=== PATIENT | male | born 1940 | race Caucasian/White ===

== ENCOUNTER → 2019-11-22 | Outpatient (CLI) | payer MEDICARE, BC | LOC: COL.RAD 14:17 | DX: M23.351 Other meniscus derangements, posterior horn of lateral meniscus, right knee (principal); M23.8X1 Other internal derangements of right knee ==

== ENCOUNTER 2020-05-06 23:27 | Inpatient (IN) | payer MEDICARE, BC ==
[~2020-05-06] VITALS: Ht 177.8 cm; Wt 87.0 kg
[2020-05-07] VITALS (241 sets, daily range): BP systolic 115–139; BP diastolic 44–66; PULSE 47–57; TEMP 97.6–97.9; O2SAT 85–100
[2020-05-07 00:36] LABS: PROTHROMBIN TIME 11.2 SECONDS (9.7-12.8)
[2020-05-07 00:42] LABS: PARTIAL THROMBOPLASTIN TIME 16.6 SECONDS (26.0-37.0)
[2020-05-07 00:57] LABS: ALANINE AMINOTRANSFERASE 18 U/L (4-49); ALBUMIN 3.6 gm/dL (3.5-5.0); ALKALINE PHOSPHATASE 64 U/L (50-136); ANION GAP 7 mmol/L (7-16); AST,SGOT 26 U/L (15-37); BILIRUBIN,TOTAL 0.3 mg/dL (0.0-1.0); BLOOD UREA NITROGEN 24 mg/dL (9-20); CALCIUM 8.8 mg/dL (8.4-10.2); CARBON DIOXIDE 26 mmol/L (22-30); CHLORIDE 105 mmol/L (98-107); CREATININE, serum 1.47 (0.66-1.25); GLUCOSE 134 mg/dL (74-106); MAGNESIUM 1.8 mg/dL (1.6-2.3); POTASSIUM 3.8 mmol/L (3.4-5.0); SODIUM 138 mmol/L (137-145); TOTAL PROTEIN 6.9 gm/dL (6.4-8.2)
[2020-05-07 01:01] LABS: C-REACTIVE PROTEIN < 0.5 mg/dL (0.0-0.9)
[2020-05-07 01:02] LABS: BASO % 0.4 % (0.0-2.0); EOS # 0.2 (0.0-0.7); EOS % 1.7 % (0-4.0); GRAN # 8.1 (1.4-6.5); LYMPH # 1.8 (1.2-3.4); LYMPH % 16.9 % (20.0-51.0); MEAN CELL VOLUME 88 fl (80.0-100.0); MEAN CORPUSCULAR HGB CONC 34 g/dl (33.0-37.0); MEAN PLATELET VOLUME 10.1 fl (7.4-10.4); MONO # 0.6 (0.1-0.6); MONO % 5.6 % (1.7-9.3); PLATELET COUNT 164 K/mm3 (130-400); RED BLOOD COUNT 3.15 M/mm3 (4.20-5.60); REDCELL DISTRIBUTION WIDTH-CV 13.8 % (11.5-14.5)
[2020-05-07 01:04] LABS: HEMATOCRIT 27.7 % (42.0-52.0); HEMOGLOBIN 9.4 g/dl (13.5-18.0); MEAN CORPUSCULAR HEMOGLOBIN 30 pg (27.0-31.0)
[2020-05-07 02:49] LABS: HEMATOCRIT 25.7 % (42.0-52.0); HEMOGLOBIN 8.5 g/dl (13.5-18.0)
--- NOTE | 2020-05-07 02:50 | NUR ---
Report called over from ED at this time by GARY Horan. Patient will be brought over shortly.
--- NOTE | 2020-05-07 03:07 | NUR ---
Patient arrives at this time via ED cart. Patient transfers self to unit bed with standby assistance. Patient changed into gown and attached to unit monitoring equipment. Assessment complete, see Admission B for details. Patient is having no pain or SOA. Patient's , Lisandro, at the bedside. Educated on visiting policy, patient's security password, and how call for an update. Patient is resting in bed now. Provided with urinal, but educated to call prior to getting up to the toilet. Patient appears very tired. Lights turned out, call light within reach. Will continue to monitor.
[2020-05-07] MEDS ORDERED: ASPIRIN E.C. 8181 MG PO (03:25)
[2020-05-07] MEDS ORDERED: FLOMAX 0.40.4 MG/CAP PO (03:26)
[2020-05-07] MEDS ORDERED: TURMERIC500 MG PO (03:27)
[2020-05-07] MEDS ORDERED: PROTONIX 40MG T40 MG PO (03:28)
[2020-05-07] MEDS ORDERED: HCTZ 25MG TAB25 MG PO (03:29)
[2020-05-07] MEDS ORDERED: PROSCAR 5MG5 MG PO (03:31)
[2020-05-07] MEDS ORDERED: SAW PALMETTO S450 MG PO (03:32)
[2020-05-07] MEDS ORDERED: ALEVE 220MG220 MG PO (03:33)
[2020-05-07] MEDS ORDERED: MOTRIN 200200 MG/TAB PO (03:34)
[2020-05-07 05:23] LABS: BASO % 0.3 % (0.0-2.0); EOS % 0.3 % (0-4.0); GRAN # 9.3 (1.4-6.5); LYMPH # 1.3 (1.2-3.4); LYMPH % 11.5 % (20.0-51.0); MEAN CELL VOLUME 89 fl (80.0-100.0); MEAN CORPUSCULAR HGB CONC 34 g/dl (33.0-37.0); MEAN PLATELET VOLUME 10.7 fl (7.4-10.4); MONO # 0.7 (0.1-0.6); MONO % 6.4 % (1.7-9.3); PLATELET COUNT 151 K/mm3 (130-400); RED BLOOD COUNT 2.91 M/mm3 (4.20-5.60); REDCELL DISTRIBUTION WIDTH-CV 13.9 % (11.5-14.5)
[2020-05-07 05:24] LABS: HEMOGLOBIN 8.7 g/dl (13.5-18.0); MEAN CORPUSCULAR HEMOGLOBIN 30 pg (27.0-31.0)
[2020-05-07 05:30] LABS: CALCIUM 8.4 mg/dL (8.4-10.2); CREATININE, serum 1.3 (0.66-1.25); POTASSIUM 4.8 mmol/L (3.4-5.0)
--- NOTE | 2020-05-07 07:05 | NUR ---
Bedside report given to GARY Angelo
--- NOTE | 2020-05-07 07:32 | NUR ---
Report received from Aviva VEGA and care resumed.
[2020-05-07 09:49] LABS: COLLECTION METHOD CLEAN CATCH
[2020-05-07 09:58] LABS: MUCOUS Present /lpf; PH 5 (5-8); SQUAMOUS EPITHELIAL None Seen /hpf; URINE APPEARANCE Clear; URINE BACTERIA None Seen /hpf; URINE BILIRUBIN Negative (NEGATIVE); URINE BLOOD Negative (NEGATIVE); URINE COLOR Yellow; URINE GLUCOSE Negative (NEGATIVE); URINE KETONE Negative (NEGATIVE); URINE LEUKOCYTE ESTERASE Negative (NEGATIVE); URINE NITRATE Negative (NEGATIVE); URINE PROTEIN(semi-quant) Negative (NEGATIVE); URINE RBC None Seen /hpf; URINE UROBILINOGEN Negative (NEGATIVE)
--- NOTE | 2020-05-07 10:34 | NUR ---
SW met with the patient to discuss discharge plan. The patient lives in [place] with his , Lisandro (ph#[phone]). He states their daughter, Janiya Ayala (ph#[phone]), lives just a mile away from them. He reports independence with ADLs and does not have any DME. The patient's PCP is Dr. Janusz Birmingham and he receives his medications at [facility]. He reports no difficulties obtaining his meds. The patient does not have advanced directives in EMR, but he reports that he does have them completed and at home. He states that his is his DPOA-HC. The patient plans to return home with his upon discharge. SW to continue to follow as needed.
--- NOTE | 2020-05-07 11:28 | NUR ---
Dr Acosta in to see pt at this time.
[2020-05-07 14:35] LABS: HEMATOCRIT 23.3 % (42.0-52.0); HEMOGLOBIN 7.8 g/dl (13.5-18.0)
--- NOTE | 2020-05-07 16:33 | NUR ---
Pt taken to room 314 by bed with chart and belongings. Bedside udpate given to Evelyn VEGA.
--- NOTE | 2020-05-07 18:03 | NUR ---
Report called to Evelyn VEGA on medical floor. Pt to transfer to room 316.
--- NOTE | 2020-05-07 18:38 | NUR ---
Pt up to room 316 from ICU at this time by GARY Angelo. Pt is A&O. Assisted to bedside commode. Bowel prep for EGD/Colon started in ICU and transferred up to floor. Call light within reach. Will give report to abalone fisherman.
--- NOTE | 2020-05-07 18:52 | NUR ---
Report given to GARY Wood and GARY Camp. All questions answered. Pt sitting in bed, no needs expressed at this time. Pt has NS running to w/o complications. RAC IV INT also in place. Pt on room air. Pt educated on using call light for bedside commode.
--- NOTE | 2020-05-07 21:45 | NUR ---
Pt resting in bed at this time. Assessment completed and documented. Pt alert and oriented x4. Denies pain at this time. First dose of bowel prep completed. IVF infusing per orders to right hand IV site. INT to right ac patent and free of complications. Pt denies any other needs at this time. Commode at bedside. Call light within reach. Will continue to monitor.
[2020-05-08 00:33] VITALS: BP 139/65; PULSE 56; TEMP 98
[2020-05-08 03:36] VITALS: BP 134/64; PULSE 56; TEMP 97.9
--- NOTE | 2020-05-08 05:28 | NUR ---
Pt had uneventful shift. Pt awake most of the night. No complaints of pain. Multiple loose, bloody stools throuhgout the night. Denies any dizziness. INT to right ac without complications. IVF infusing per orders to right hand IV site. Pt denies any other needs. Call light within reach.
[2020-05-08 06:59] LABS: BASO # 0.1 (0.0-0.2); BASO % 0.7 % (0.0-2.0); EOS # 0.7 (0.0-0.7); EOS % 7.7 % (0-4.0); GRAN % 47.5 % (42.2-75.2); LYMPH # 3.1 (1.2-3.4); LYMPH % 37.1 % (20.0-51.0); MEAN CELL VOLUME 89 fl (80.0-100.0); MEAN CORPUSCULAR HGB CONC 33 g/dl (33.0-37.0); MEAN PLATELET VOLUME 10.9 fl (7.4-10.4); MONO # 0.6 (0.1-0.6); MONO % 6.6 % (1.7-9.3); PLATELET COUNT 156 K/mm3 (130-400); RED BLOOD COUNT 2.62 M/mm3 (4.20-5.60); REDCELL DISTRIBUTION WIDTH-CV 14.3 % (11.5-14.5)
[2020-05-08 07:07] VITALS: BP 156/53; PULSE 60; TEMP 98.1
[2020-05-08 07:09] LABS: HEMATOCRIT 23.4 % (42.0-52.0); HEMOGLOBIN 7.7 g/dl (13.5-18.0); MEAN CORPUSCULAR HEMOGLOBIN 29 pg (27.0-31.0)
[2020-05-08 07:19] LABS: CALCIUM 8.5 mg/dL (8.4-10.2); CREATININE, serum 1.13 (0.66-1.25)
--- NOTE | 2020-05-08 07:23 | NUR ---
Report given to GARY Aguilar
--- NOTE | 2020-05-08 08:41 | NUR ---
Pt awake and alert, talkative, no C/O pain at this time, bowel prep complete, shift assessment complete.
[2020-05-08 12:13] VITALS: BP 114/56; PULSE 56
--- NOTE | 2020-05-08 15:45 | NUR ---
Pt discharged to home, discussed discharge information with Pt answered questions. Escorted Pt to entrance, Pt left with spouse via private transportation.
== END 2020-05-08 15:50 | disposition home or self-care (01) | DRG 378 ==
LOC: COL.ER 23:27 → IMCU 05-07 02:19 → ICU 05-07 02:19 → IMCU 05-07 02:45 → MEDICAL 05-07 18:20
PROVIDERS: Emergency Medicine; Internal Medicine Gastroenterology; Physician Assistant; ADMIT Student in an Organized Health Care Education/Training Program
PROC: 0DJ08ZZ Inspection of Upper Intestinal Tract, Via Natural or Artificial Opening Endoscopic (ICD-10-PCS; principal; 2020-05-08 11:00)
PROC: 0DJD8ZZ Inspection of Lower Intestinal Tract, Via Natural or Artificial Opening Endoscopic (ICD-10-PCS; 2020-05-08 11:00)
DX: K57.91 Diverticulosis of intestine, part unspecified, without perforation or abscess with bleeding (principal); D62 Acute posthemorrhagic anemia; N17.9 Acute kidney failure, unspecified; N40.0 Benign prostatic hyperplasia without lower urinary tract symptoms; Z87.891 Personal history of nicotine dependence
CPT/HCPCS: 99222-AI; 99231-AI; 99239; C9113; J2405; J2704; J7030

== ENCOUNTER → 2021-05-11 | Outpatient (CLI) | payer MEDICARE, BC ==
[~2021-05-11] MED LIST: ALEVE 220MG220 MG PO; ASPIRIN E.C. 8181 MG PO; FLOMAX 0.40.4 MG/CAP PO; HCTZ 25MG TAB25 MG PO; LEVAQUIN 5500 MG/TA1 PO; MOTRIN 200200 MG/TAB PO; PROSCAR 5MG5 MG PO; PROTONIX 40MG T40 MG PO; SAW PALMETTO S450 MG PO; TURMERIC500 MG PO
== END ==
LOC: COL.RAD 08:12
DX: H53.40 Unspecified visual field defects (principal)

== ENCOUNTER 2021-10-09 23:37 | Inpatient (IN) | payer MEDICARE, BC ==
[~2021-10-09] VITALS: Ht 182.9 cm; Wt 92.0 kg
[~2021-10-09 23:37] MED LIST changes: -LEVAQUIN 5500 MG/TA1 PO
[2021-10-10] VITALS (7 sets, daily range): BP systolic 113–180; BP diastolic 53–90; PULSE 53–80; TEMP 97.5–97.9
[2021-10-10 00:24] LABS: ALBUMIN 3.8 gm/dL (3.4-4.8); BILIRUBIN,TOTAL 0.3 mg/dL (0.2-1.2); CALCIUM 8.9 mg/dL (8.4-10.2); CREATININE, serum 1.39 mg/dL (0.72-1.25); POTASSIUM 3.9 mmol/L (3.5-4.5); TOTAL PROTEIN 7.5 gm/dL (6.2-8.1)
[2021-10-10 00:40] LABS: BASO # 0.1 K/mm3 (0.0-0.2); BASO % 0.7 % (0.0-2.0); EOS # 0.5 K/mm3 (0.0-0.7); GRAN # 4.3 K/mm3 (1.4-6.5); GRAN % 46.5 % (42.2-75.2); HEMOGLOBIN 11.2 g/dl (13.5-18.0); LYMPH # 3.5 K/mm3 (1.2-3.4); LYMPH % 37.4 % (20.0-51.0); MEAN CELL VOLUME 87 fl (80.0-100.0); MEAN CORPUSCULAR HEMOGLOBIN 29 pg (27.0-31.0); MEAN CORPUSCULAR HGB CONC 33 g/dl (33.0-37.0); MEAN PLATELET VOLUME 10.9 fl (7.4-10.4); MONO # 0.9 K/mm3 (0.1-0.6); PLATELET COUNT 224 K/mm3 (130-400); RED BLOOD COUNT 3.89 M/mm3 (4.20-5.60); REDCELL DISTRIBUTION WIDTH-CV 14.2 % (11.5-14.5)
[2021-10-10 00:42] LABS: HEMATOCRIT 33.8 % (42.0-52.0)
[2021-10-10 01:45] LABS: COLLECTION METHOD CLEAN CATCH
[2021-10-10 01:54] LABS: PH 5 (5-8); SQUAMOUS EPITHELIAL None Seen /hpf (0-10); URINE APPEARANCE Clear (CLEAR/HAZY); URINE BACTERIA None Seen (NONE SEEN); URINE BILIRUBIN Negative (NEGATIVE); URINE BLOOD 2+ (NEGATIVE); URINE COLOR Yellow (YELLOW); URINE GLUCOSE Negative (NEGATIVE); URINE KETONE Negative (NEGATIVE); URINE LEUKOCYTE ESTERASE 1+ (NEGATIVE); URINE NITRATE Negative (NEGATIVE); URINE PROTEIN(semi-quant) Negative (NEGATIVE); URINE UROBILINOGEN Negative (NEGATIVE)
--- NOTE | 2021-10-10 03:42 | NUR ---
ALERT AND OX4. DENIES SOA, CHEST PAIN OR DIZZY. REPORTS BLOODY STOOL SINCE YESTURDAY MID MORNING PROGRESSINGLY WORSE THOUGH OUT THE DAY. STATES HAD THIS HAPPEN A FEW YEARS AGO AND WAS SCOPED WITH NEGATIVE RESULTS ENDED UP RESOLVING ON OWN. MED REC REVIEWED, HX AND ASSESSMENT OBTAINED. POC DISCUSSED. ORIENTATED TO CALL LIGHT BED AND ROOM.
--- NOTE | 2021-10-10 05:15 | NUR ---
TX HIGH BP WITH PRN APRESOLINE- BP CYCLING. PT DENIES SYMPTOMS. MO VENTURA AT BEDSIDE FOR ADMIT. SURG DR FRAZIER WILL SEE PT THIS AM.
[2021-10-10 06:59] LABS: BASO # 0.1 K/mm3 (0.0-0.2); BASO % 0.6 % (0.0-2.0); EOS # 0.4 K/mm3 (0.0-0.7); EOS % 4.7 % (0-4.0); GRAN # 3.9 K/mm3 (1.4-6.5); GRAN % 49.9 % (42.2-75.2); LYMPH # 2.7 K/mm3 (1.2-3.4); MEAN CELL VOLUME 84 fl (80.0-100.0); MEAN CORPUSCULAR HEMOGLOBIN 29 pg (27.0-31.0); MEAN CORPUSCULAR HGB CONC 35 g/dl (33.0-37.0); MEAN PLATELET VOLUME 11.1 fl (7.4-10.4); MONO # 0.7 K/mm3 (0.1-0.6); MONO % 9.5 % (1.7-9.3); PLATELET COUNT 182 K/mm3 (130-400); RED BLOOD COUNT 3.45 M/mm3 (4.20-5.60); REDCELL DISTRIBUTION WIDTH-CV 13.9 % (11.5-14.5)
[2021-10-10 07:21] LABS: CALCIUM 8.9 mg/dL (8.4-10.2); CREATININE, serum 1.23 mg/dL (0.72-1.25); POTASSIUM 3.9 mmol/L (3.5-4.5)
--- NOTE | 2021-10-10 09:00 | NUR ---
Pt tolerated some clear liquids for breakfast although he is still have blood stool. No pain complaints at this time, will continue to monitor
--- NOTE | 2021-10-10 11:17 | NUR ---
PAM net with patient to complete intake. Patient provides that he lives in [facility] with his Lisandro [phone]. Patient states he does not utilize DME and is independent with ADL's. Patient provides that his PCP is Dr. Birmingham, pharmacy is [facility], and is able to afford his medications. Patient provides that he has documenation appointing his as DPOA/HC. Patient's plan is to return to his home up on DC. SW will continue to follow. DC plan: Home
[2021-10-10 13:56] LABS: INR 1.1 (0.8-3.0); PROTHROMBIN TIME 12.6 SECONDS (9.7-12.8)
--- NOTE | 2021-10-10 15:43 | NUR ---
Pt was in restroom and rang call light as he was feeling weak. Pt was very pale and was diaphoretic. Pt was able to ambulate back to bed. Obtained VS as charted. Pt reported that he is not having as large amounts of blood stool any more, but PO intake is not the best. Will notify
--- NOTE | 2021-10-10 16:18 | NUR ---
Notified Dr Campos of pt new syptoms, new orders received
[2021-10-10 18:39] LABS: HEMATOCRIT 28.9 % (42.0-52.0); HEMOGLOBIN 9.8 g/dl (13.5-18.0)
--- NOTE | 2021-10-10 22:26 | NUR ---
ALERT AND OX4. DENIES SOA, CHEST PAIN OR DIZZY. CONT TO HAVE SOME BLOODY STOOL BUT LESS OVER THE DAY. A EPISODE OF LIGHT HEADNESS TODAY BUT NOT THIS EVENING SO FAR. POC DISCUSSED. BOLUS INFUSED IV FLUIDS MAINTAINED. CALL LIGHT WI REACH. POSSIBLE DC TOMORROW.
[2021-10-11] VITALS (11 sets, daily range): BP systolic 98–152; BP diastolic 53–80; PULSE 51–65; TEMP 97.6–98.1
--- NOTE | 2021-10-11 05:40 | NUR ---
REPORTS NO BLOODY STOOLS OVERNIGHT. NO EPISODE OF LIGHT HEADED OR DIZZY. IV FLUIDS CONTINUE. AM MEDS GIVEN.
[2021-10-11 06:03] LABS: BASO # 0.1 K/mm3 (0.0-0.2); BASO % 0.6 % (0.0-2.0); EOS # 0.4 K/mm3 (0.0-0.7); EOS % 4.9 % (0-4.0); GRAN # 4.4 K/mm3 (1.4-6.5); GRAN % 54.1 % (42.2-75.2); LYMPH # 2.6 K/mm3 (1.2-3.4); LYMPH % 32.2 % (20.0-51.0); MEAN CELL VOLUME 84 fl (80.0-100.0); MEAN CORPUSCULAR HGB CONC 34 g/dl (33.0-37.0); MEAN PLATELET VOLUME 10.7 fl (7.4-10.4); MONO # 0.7 K/mm3 (0.1-0.6); PLATELET COUNT 186 K/mm3 (130-400); RED BLOOD COUNT 3.04 M/mm3 (4.20-5.60); REDCELL DISTRIBUTION WIDTH-CV 14.1 % (11.5-14.5)
[2021-10-11 06:07] LABS: HEMATOCRIT 25.5 % (42.0-52.0); HEMOGLOBIN 8.6 g/dl (13.5-18.0); MEAN CORPUSCULAR HEMOGLOBIN 28 pg (27.0-31.0)
[2021-10-11 06:25] LABS: CREATININE, serum 1.22 mg/dL (0.72-1.25); MAGNESIUM 1.7 mg/dL (1.6-2.6); POTASSIUM 3.9 mmol/L (3.5-4.5)
--- NOTE | 2021-10-11 09:45 | NUR ---
Patient alert and oriented, answers questions appropriately. See assessment. No c/o rectal bleeding. +Bowel movement. Abdomen soft, non tender, non distended. Bowel sounds active x4 quads. +Flatus. No c/o at this time.
--- NOTE | 2021-10-11 10:37 | NUR ---
Initial visit; Patient thanked Transmission Worker for looking in on him, offering prayer and Spiritual Care. Transmission Worker wished him well and will follow up while patient is here.
--- NOTE | 2021-10-11 11:38 | NUR ---
Manager Stars collaborated with RN who advised patient is independent in the room.
[2021-10-11 13:56] LABS: HEMATOCRIT 26.1 % (42.0-52.0); HEMOGLOBIN 8.7 g/dl (13.5-18.0)
--- NOTE | 2021-10-11 14:06 | NUR ---
insulation worker met with patient to discuss discharge plan.Patient reports that he lives at home with his Lisandro ([phone]).Patient reports that he is fully independent with his activities of daily living and does not utilize any DME to assist with mobility. Patient has no oxygen needs. PCP is and he utilizes [facility] for medications with no cost difficulty. Patient reports that he does have a DPOA-HC established and that his Lisandro is his agent. Patient plans on retun home with no concerns. Discharge plan: Home with .
--- NOTE | 2021-10-11 23:43 | NUR ---
ALERT AND OX4. DENIES SOA, CHEST PAIN OR DIZZY. HEMOGLOBIN DROPPED TODAY OBS OVERNIGHT. NO BLOODY STOOLS TODAY REPORTED. FEELING BETTER. POC DISCUSSED. ANTICPATES DC TOMORROW. CALL LIGHT WI REACH.
[2021-10-12 00:50] VITALS: BP 137/58; PULSE 75; TEMP 98
[2021-10-12 06:37] LABS: BASO # 0.1 K/mm3 (0.0-0.2); BASO % 0.7 % (0.0-2.0); EOS # 0.5 K/mm3 (0.0-0.7); EOS % 6.3 % (0-4.0); GRAN # 3.8 K/mm3 (1.4-6.5); GRAN % 51.3 % (42.2-75.2); LYMPH # 2.4 K/mm3 (1.2-3.4); LYMPH % 32.6 % (20.0-51.0); MEAN CELL VOLUME 86 fl (80.0-100.0); MEAN CORPUSCULAR HGB CONC 34 g/dl (33.0-37.0); MONO # 0.7 K/mm3 (0.1-0.6); PLATELET COUNT 199 K/mm3 (130-400)
[2021-10-12 06:38] LABS: HEMATOCRIT 27.6 % (42.0-52.0); HEMOGLOBIN 9.3 g/dl (13.5-18.0); MEAN CORPUSCULAR HEMOGLOBIN 29 pg (27.0-31.0)
[2021-10-12 06:50] LABS: CALCIUM 9.6 mg/dL (8.4-10.2); CREATININE, serum 1.42 mg/dL (0.72-1.25); POTASSIUM 3.8 mmol/L (3.5-4.5)
[2021-10-12 07:55] VITALS: BP 138/55; PULSE 52; TEMP 98.2
[2021-10-12] MEDS ORDERED: LEVAQUIN 5500 MG/TA1 PO (09:25)
--- NOTE | 2021-10-12 09:41 | NUR ---
Follow-up visit; Patient thanked Energy Professional for offering thanks and God's blessings for Energy Professional for keeping him in her prayers.
--- NOTE | 2021-10-12 10:00 | NUR ---
Patient alert and oriented, answers questions appropriately. See assessment. No c/o abdominal pain or pressure. No c/o urinary burning, frequency or hesitancy. No c/o flank pain. +Bowel movement. +Flatus. No c/o at this time.
--- NOTE | 2021-10-12 12:07 | NUR ---
Discharge instructions reviewed with patient, verbalized understanding. Discharged via wheelchair to auto/home with family at 1205.
== END 2021-10-12 12:05 | disposition home or self-care (01) | DRG 378 ==
LOC: COL.ER 23:37 → SURG 10-10 02:22
PROVIDERS: Emergency Medicine; Internal Medicine; Physician Assistant; Student in an Organized Health Care Education/Training Program; Surgery; ADMIT Internal Medicine
DX: K57.31 Diverticulosis of large intestine without perforation or abscess with bleeding (principal); N39.0 Urinary tract infection, site not specified; I10 Essential (primary) hypertension; K21.9 Gastro-esophageal reflux disease without esophagitis; N40.0 Benign prostatic hyperplasia without lower urinary tract symptoms; D64.9 Anemia, unspecified; M10.9 Gout, unspecified; B95.7 Other staphylococcus as the cause of diseases classified elsewhere; Z87.891 Personal history of nicotine dependence
CPT/HCPCS: 99223-AI; 99232-AI; 99239; C9113; J0360; J0696; J7030; J7040; Q9967

== ENCOUNTER 2021-10-15 11:58 | Emergency (ER) | payer MEDICARE, BC ==
[~2021-10-15] VITALS: Ht 182.9 cm; Wt 86.8 kg
[~2021-10-15 11:58] MED LIST changes: +LEVAQUIN 5500 MG/TA1 PO
[2021-10-15 12:52] VITALS: TEMP 97.7
[2021-10-15 13:29] LABS: BASO % 0.4 % (0.0-2.0); EOS # 0.1 K/mm3 (0.0-0.7); EOS % 0.8 % (0-4.0); GRAN # 5.9 K/mm3 (1.4-6.5); GRAN % 74.1 % (42.2-75.2); LYMPH # 1.5 K/mm3 (1.2-3.4); LYMPH % 18.3 % (20.0-51.0); MEAN CELL VOLUME 86 fl (80.0-100.0); MEAN CORPUSCULAR HGB CONC 34 g/dl (33.0-37.0); MEAN PLATELET VOLUME 10.3 fl (7.4-10.4); MONO # 0.5 K/mm3 (0.1-0.6); PLATELET COUNT 197 K/mm3 (130-400); RED BLOOD COUNT 2.89 M/mm3 (4.20-5.60); REDCELL DISTRIBUTION WIDTH-CV 13.9 % (11.5-14.5)
[2021-10-15 13:31] LABS: HEMATOCRIT 24.7 % (42.0-52.0); HEMOGLOBIN 8.3 g/dl (13.5-18.0); MEAN CORPUSCULAR HEMOGLOBIN 29 pg (27.0-31.0)
[2021-10-15 13:45] LABS: ALBUMIN 3.4 gm/dL (3.4-4.8); BILIRUBIN,TOTAL 0.3 mg/dL (0.2-1.2); CALCIUM 8.5 mg/dL (8.4-10.2); CREATININE, serum 1.39 mg/dL (0.72-1.25); TOTAL PROTEIN 6.6 gm/dL (6.2-8.1)
[2021-10-15 13:50] LABS: TROPONIN-I 0.011 ng/mL (0.00-0.033)
[2021-10-15 14:19] VITALS: BP 140/63; PULSE 54
== END 2021-10-15 14:24 | disposition home or self-care (01) ==
LOC: COL.ER 11:58
PROVIDERS: Emergency Medicine
DX: R55 Syncope and collapse (principal); I10 Essential (primary) hypertension; K21.9 Gastro-esophageal reflux disease without esophagitis; N40.0 Benign prostatic hyperplasia without lower urinary tract symptoms; Z79.899 Other long term (current) drug therapy
CPT/HCPCS: J7030